=== PATIENT | male | born 1940 ===

== ENCOUNTER 2022-12-05 19:10 | Emergency (ER) | payer MEDICARE, SELFPAY ==
--- NOTE | ~2022-12-05 | XR_ITS ---
EXAMINATION: XR CHEST CLINICAL INFORMATION: Cough COMPARISON: None available. TECHNIQUE: Frontal view of the chest was obtained. FINDINGS: Lungs are hypoinflated. Heart size within normal limits. Atelectasis is present at the left lung base. Tiny left pleural effusion cannot be excluded. Increased opacity overlying the right hemithorax may be due to patient rotation. Consolidation with air bronchograms is not seen. No lung masses. Surgical clips are present in the right upper quadrant. XR/XR chest 1V IMPRESSION: Hypoinflated lungs with left basilar atelectasis and possible tiny left pleural effusion. An inspiratory PA and lateral chest radiograph would be useful when the patient is stable.
--- NOTE | ~2022-12-05 | XR_ITS ---
EXAMINATION: XR CHEST CLINICAL INFORMATION: Shortness of breath. COMPARISON: 12/05/2022 TECHNIQUE: 2 views of the chest were obtained. FINDINGS: The lung volumes are low which limits evaluation. The cardiomediastinal silhouette is stable. There is mild diffuse interstitial prominence. There is an apparent posterior opacity which obscures the posterior left diaphragm and partially obscures the lower thoracic vertebral. The bony structures and soft tissues are unremarkable. XR/XR chest 2V IMPRESSION: Low lung volumes limits evaluation. Mild diffuse interstitial prominence suspected to be technical and/or chronic. There appears to be a posterior opacity not well seen on the AP view which obscures the posterior left hemidiaphragm and lower thoracic vertebra. This is possibly atelectasis or infiltrate.
--- NOTE | ~2022-12-05 | US_ITS ---
EXAMINATION: US VENOUS ULTRASOUND WITH DOPPLER LOWER EXTREMITY, BILATERAL CLINICAL INFORMATION: Lower extremity edema. COMPARISON: None available. TECHNIQUE: Ultrasound of the deep veins is performed from the hip to the calf with compression sonography and color and pulse Doppler assessment. Spectral analysis with color-flow imaging is performed. FINDINGS: RIGHT: There is normal venous compression and respiratory variation and augmented flow. The visualized common femoral vein, superficial femoral vein, profunda femoral vein, popliteal vein, and the trifurcation region shows no evidence of deep venous thrombosis. There is no significant popliteal fossa cyst. LEFT: There is normal venous compression and respiratory variation and augmented flow. The visualized common femoral vein, superficial femoral vein, profunda femoral vein, popliteal vein, and the trifurcation region shows no evidence of deep venous thrombosis. There is no significant popliteal fossa cyst. If the patient's symptoms persist, followup ultrasound in 5 days 7 days might be of value to exclude proximal propagation from a non-visualized calf vein. US/US venous duplex LE BI IMPRESSION: No DVT demonstrated in the bilateral lower extremities.
[2022-12-05 19:23] VITALS: BP 102/61; BP 107/69; PULSE 78; PULSE 82; RESP 12; TEMP 36.8; O2SAT 92
--- NOTE | 2022-12-05 19:32 | ED_ITS ---
HPI - General Adult General Chief complaint: Weakness Stated complaint: weak, dizzy, inability to urinate Time Seen by Provider: 12/05/22 19:19 Source: family Mode of arrival: EMS Limitations: no limitations History of Present Illness HPI narrative: Patient has history of hypothyroidism status post tracheostomy was seen at [facility] on 11/29 for cough diagnosed as bronchitis started on doxycycline comes back from assisted living place for increased weakness patient is wheelchair-bound and feeling so getting cannot move from the wheelchair to the bed patient does have history of hypothyroidism on levothyroxine 137 mcg which she stopped about 3 months ago for unknown reason restarted by her physician yesterday 50 mcg but received 137 mcg on 11/29 in the ED Related Data Home Medications Medication Instructions Recorded Confirmed ezetimibe 10 mg tablet 10 mg PO DAILY 12/06/22 12/06/22 finasteride 5 mg tablet 5 mg PO DAILY 12/06/22 12/06/22 omeprazole 20 mg capsule,delayed 20 mg PO DAILY 12/06/22 12/06/22 release tamsulosin 0.4 mg capsule 0.8 mg PO DAILY 12/06/22 12/06/22 Previous Rx's Medication Instructions Recorded levothyroxine 137 mcg capsule 137 mcg PO DAILY #90 caps 12/06/22 Allergies Allergy/AdvReac Type Severity Reaction Status Date / Time No Known Allergies Allergy Verified 12/05/22 19:47 Review of Systems 2 Review of Systems: Yes all other systems are reviewed and are negative [facility] Social History Social History Advance Directives: No Advance Directives Information Provided: No Physical Exam ED Vital Signs: Vital Signs - 24 hr 12/05/22 19:23 12/05/22 21:53 12/05/22 23:44 Temperature 98.2 F 98.3 F 98.5 F Pulse Rate 82 55 75 Respiratory Rate 12 11 L 10 L Blood Pressure 102/61 157/134 H 144/71 H Pulse Oximetry 92 91 L 92 Oxygen Delivery Method Room Air Room Air Room Air BMI result Body Mass Index 30.0 Appearance: Alert. Oriented X3. No acute distress. Eyes: PERRLA, No Nystagmus ENT: Pharynx normal. Oral Mucosa moist Neck: Normal inspection. Neck supple. CVS: Normal heart rate and rhythm. Pulses normal. Respiratory: No respiratory distress. Equal air entry bilateral, no wheezing/rales/rhonchi Abdomen: Soft and nontender. Bowel sounds are present, no mass palpable, no CVA tenderness Skin: Skin warm and dry. Normal skin color. Normal skin turgor. Extremities: No lower extremity edema. No calf tenderness Neuro: Oriented X 3. Left-sided residual weakness Medications Administered Discontinued Medications Generic Name Dose Route Start Last Admin Trade Name Avelq PRN Reason Stop Dose Admin Levothyroxine Sodium 88 mcg 12/06/22 01:27 12/06/22 01:49 Levothyroxine Sodium 88 Mcg Tablet PO 12/06/22 01:28 88 mcg ONCE ONE Administration Medical Decision Making Medical Decision Making [facility] Narrative: Patient will increased weakness workup showed increased TSH level patient used to take 137 micro Gram levothyroxine which he did not take for 3 months was given 50 mcg by the PCP yesterday unable to be managed at assisted living place as feeling very weak will give extra dose of 88 mcg now plan for case management for placement in rehab until gets better Differential Diagnosis Differential Diagnoses: The differential diagnosis associated with the presentation includes Weakness/metabolic encephalopathy/UTI/infected Admission/Observation Consideration of admission/observation: Escalation of care including admission/observation considered Lab Data [facility] Lab Attestation statement: I reviewed the patient's lab results. 12/05/22 20:28 12/05/22 20:28 Labs: Lab Results 12/05/22 12/05/22 Range/Units 20:27 20:28 WBC 9.5 (4.8-10.8) X10*3/uL RBC 4.83 (4.60-5.80) X10*6/uL Hgb 13.0 L (14.0-18.0) g/dl Hct 40.1 L (42.0-52.0) % MCV 83.0 (80.0-98.0) fL MCH 26.9 L (27.0-33.0) pg MCHC 32.4 (31.0-36.0) g/dl RDW 17.3 H (11.0-16.0) % Plt Count 236 (160-400) X10*3/uL MPV 10.0 (9.4-12.4) fL Immature Gran % (Auto) 0.3 (0.0-0.4) % Neut % (Auto) 65.2 (45-73) % Lymph % (Auto) 19.2 L (20-40) % [place] % (Auto) 10.9 (2-11) % Eos % (Auto) 3.2 (0-4) % Baso % (Auto) 1.2 (0-2) % Lymph # (Auto) 1.8 (1.2-4.9) X10*3/uL [place] # (Auto) 1.0 (0.1-1.2) X10*3/uL Eos # (Auto) 0.3 (0.0-0.4) X10*3/uL Baso # (Auto) 0.1 (0.0-0.2) X10*3/uL Abs Immat Gran (auto) 0.03 (0.00-0.03) X10*3/uL Absolute Neuts (auto) 6.2 (2.0-8.3) x10*3/uL Absolute Nucleated RBC 0.000 (0.0-0.012) X10*3/uL Nucleated RBC % (auto) 0.0 (0.0-0.2) /100WBC Sodium 135 (135-145) mmol/L Potassium 4.8 (3.3-5.1) mmol/L Chloride 101 (96-108) mmol/L Carbon Dioxide 21 L (22-29) mmol/L Anion Gap 18 (12-20) BUN 21 H (9-16) mg/dL Creatinine 1.44 H (0.5-1.4) mg/dL Estim Creat Clear Calc 48.7 Estimated GFR 47 Random Glucose 101 (60-115) mg/dL Lactic Acid 1.0 (0.5-2.0) mmol/L Calcium 9.4 (8.4-10.2) mg/dL Total Bilirubin 0.6 (0.0-1.0) mg/dL AST 92 H (5-37) U/L ALT 43 H (0-40) U/L Alkaline Phosphatase 63 (39-117) U/L Total Protein 7.9 (6.5-8.0) g/dL Albumin 4.3 (3.5-5.0) g/dL TSH > 100.00 H (0.32-4.0) uIU/mL COVID-19 (ANTIONETTE) Negative (Negative) COVID-19 Clin Com See Note Independent Interpretation I performed an independent interpretation of an: EKG Interpretation: Poor baseline rhythm heart rate 68 beats per minute normal amplitude of the R- waves no acute ST-T changes no acute ischemia Discharge Plan Discharge Clinical Impression: Hypothyroidism, Weakness Patient Disposition: Still a Patient Instructions: Hypothyroidism (ED), Weakness (ED) Additional Instructions: Will increase the dose of levothyroxine to 137 mcg daily as you were taking before Continue rest of the medication Prescriptions: New levothyroxine 137 mcg capsule 137 mcg PO DAILY Qty: 90 0RF No Action tamsulosin 0.4 mg capsule 0.8 mg PO DAILY omeprazole 20 mg capsule,delayed release(DR/EC) 20 mg PO DAILY finasteride 5 mg tablet 5 mg PO DAILY ezetimibe 10 mg tablet 10 mg PO DAILY
[2022-12-05 20:33] LABS: MANUAL DIFF FLAG NO
[2022-12-05 20:35] LABS: Basophils Absolute Auto 0.1 X10*3/uL (0.0-0.2); Basophils Percent Auto 1.2 % (0-2); Eosinophils Absolute Auto 0.3 X10*3/uL (0.0-0.4); Eosinophils Percent Auto 3.2 % (0-4); Hematocrit 40.1 % (42.0-52.0); Imm Gran Abs Auto 0.03 X10*3/uL (0.00-0.03); Imm Gran Pct Auto 0.3 % (0.0-0.4); Lymphocytes Absolute Auto 1.8 X10*3/uL (1.2-4.9); Lymphocytes Percent Auto 19.2 % (20-40); Mean Corpuscular HGB Conc 32.4 g/dl (31.0-36.0); Mean Corpuscular Hemoglobin 26.9 pg (27.0-33.0); Monocytes Percent Auto 10.9 % (2-11); Neutrophils Absolute Auto 6.2 x10*3/uL (2.0-8.3); Neutrophils Percent Auto 65.2 % (45-73); Platelet Count 236 X10*3/uL (160-400); Red Blood Count 4.83 X10*6/uL (4.60-5.80); Red Cell Distribution Width 17.3 % (11.0-16.0); White Blood Count 9.5 X10*3/uL (4.8-10.8)
[2022-12-05 20:48] LABS: COVID-19 Test Negative (Negative); IDNOW Serial# 08D9AD1C
[2022-12-05 20:55] LABS: Alanine Aminotransferase 43 U/L (0-40); Albumin Level 4.3 g/dL (3.5-5.0); Alkaline Phosphatase 63 U/L (39-117); Anion Gap 18 (12-20); Aspartate Amino Transferase 92 U/L (5-37); Bilirubin Total 0.6 mg/dL (0.0-1.0); Blood Urea Nitrogen 21 mg/dL (9-16); Calcium 9.4 mg/dL (8.4-10.2); Carbon Dioxide 21 mmol/L (22-29); Chloride 101 mmol/L (96-108); Creatinine Clr Calc Pharmacy 48.7; Estimated Glomerular Filt Rate 47; Glucose Random 101 mg/dL (60-115); Potassium 4.8 mmol/L (3.3-5.1); Sodium 135 mmol/L (135-145); Total Protein 7.9 g/dL (6.5-8.0)
[2022-12-05 21:10] LABS: Thyroid Stimulating Hormone > 100.00 uIU/mL (0.32-4.0)
[2022-12-05 21:53] VITALS: BP 157/134; PULSE 55; RESP 11; TEMP 36.8; O2SAT 91
[2022-12-05 23:44] VITALS: BP 144/71; PULSE 75; RESP 10; TEMP 36.9; O2SAT 92
[2022-12-06] VITALS (8 sets, daily range): BP systolic 102–130; BP diastolic 55–93; PULSE 63–106; RESP 12–19; TEMP 36.7–36.9; O2SAT 91–94
--- NOTE | 2022-12-06 01:35 | ECG_ITS ---
Test Reason : HYPOTHYROID Blood Pressure : / mmHG Vent. Rate : 068 BPM Atrial Rate : 000 BPM P-R Int : 000 ms QRS Dur : 080 ms QT Int : 354 ms P-R-T Axes : 000 034 138 degrees QTc Int : 376 ms Poor data quality, interpretation may be adversely affected Normal sinus rhythm Nonspecific ST and T wave abnormality Abnormal ECG No previous ECGs available Referred By: Eladio Mcmullen Electronically Signed By:HI COMBS
[2022-12-06] MEDS: Levothyroxine Sodium 88 MCG TABLET PO ×2 (01:49→07:54)
--- NOTE | 2022-12-06 02:41 | PC.NURSE ---
Pt BIBA from [facility] living [facility]. Pt speaks with electrolarynx, tracheotomy without the canula noted. Pt reports increase weakness and dizziness x few days, with not taking levothyroxine x 4 months. Son at bedside reports Pt is able to pivot from W/C to bed at baseline but not being able to do so recently. BLL redness/swelling. Lung sounds wheezy on expiratory. [place] cath placed. Pt medicated PO per MAR with no difficulties.
[2022-12-06 06:42] LABS: Appearance Urine Clear; Color Urine Dark Yellow; Glucose Urine UA Negative (Negative); Leukocyte Esterase Urine Negative (Negative); Nitrite Urine Negative (Negative); PH 5.5 (5.0-9.0); Specific Gravity - Urine 1.025 (1.005-1.025); Urine Blood Negative (Negative); Urine Ketones Negative (Negative); Urine Protein Trace mg/dL (Neg-Trace)
--- NOTE | 2022-12-06 07:39 | PC.NURSE ---
patient found to be incontinent of urine, patient cleaned up, linens and pads changed, new [place] cath in place. patient sitting up eating breakfast, VSS.
[2022-12-06] MEDS: Tamsulosin HCL 0.4 MG CAPSULE 0.8 MG PO (08:21)
[2022-12-06] MEDS: Finasteride 5 MG TABLET PO (08:21)
[2022-12-06] MEDS: Ezetimibe 10 MG TABLET PO (08:21)
--- NOTE | 2022-12-06 12:25 | PC.NURSE ---
patient sleeping, respirations equal and unlabored. patient shows no signs of distress. Call thompson within reach, patient able to make needs known
--- NOTE | 2022-12-06 12:34 | PHA.MEDREC ---
Pharmacy Consult ? Medication Reconciliation Pharmacy has reviewed the medication reconciliation completed by nursing.
--- NOTE | 2022-12-06 13:48 | MHC.CM.ED ---
Received case management consult overnight. Patient came to the ER due to being dizzy and urination retention. Physical therapy eval completed. Short term rehab is recommended. Met with patient in regards to discharge planning. 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 Patient resides at [facility] and uses an electric wheelchair at baseline. Patient has received 6 Pfizer vaccines. Copy of HCP obtained from [facility]. PCP verified. Patient feels he can safely return home. Received notification from Jeanine SMALL that patient's son, Terrence, is concerned about patient safely returning to [facility]. Patient verifies he is worried about going to rehab because he is afraid he will have to be a custodial care resident there. Education regarding Short term rehab and custodial care provided. Patient verbalizes understanding. Spoke with patient's son, Terrence via telephone at [phone]. Don verifies patient lives at [facility]. Don verifies patient was not inpatient in any hospital in the past 30 days. Terrence also verifies patient was only in the ER at [facility]. Don requesting if patient could be admitted to hospital for 3 days. Medicare 3 midnight qualifying stay rule explained to Terrence. Also explained Medicare regulations in regards to inpatient level of care. Don concerned about bilateral leg swelling. Also worried about patient's work of breathing. T/W discussed clinical findings at this time. Don's concerns were explained to Brittany LOERA. Additional testing will be ordered. T/W will contact [facility] to obtain a copy of ER visit. Continue to monitor for d/c needs.
[2022-12-06] MEDS: cephALEXin 500 MG CAPSULE PO ×2 (15:18→20:51)
[2022-12-06 15:42] LABS: B Type Natriuretic Peptide 24 pg/mL (<100)
--- NOTE | 2022-12-06 18:04 | PC.NURSE ---
patient resting in bed, tex[place] cath in place, approx 300 ml of urine drained. states he is comfortable
--- NOTE | 2022-12-06 19:17 | PC.NURSE ---
ASSISTED PT WITH [facility] URINE OUTPUT 500ML FOR 730 AM -7P
[2022-12-06] MEDS: Acetaminophen 325 MG TABLET 650 MG PO (23:20)
--- NOTE | 2022-12-07 00:20 | PC.NURSE ---
Pt reports bilateral leg spasm, PO medication given per MAR, Pt appeared to be sleeping on reassessment, equal and non labored breathing.
[2022-12-07] MEDS: cephALEXin 500 MG CAPSULE PO ×4 (03:00→20:08)
[2022-12-07] MEDS: LORazepam 1 MG TABLET PO (03:07)
[2022-12-07 05:58] VITALS: BP 142/77; PULSE 63; RESP 17; TEMP 36.6; O2SAT 93
[2022-12-07] MEDS: Omeprazole 20 MG CAPSULE.DR PO (06:25)
--- NOTE | 2022-12-07 06:25 | PC.NURSE ---
Pt appears to be sleeping at this time, equal and non labored respirations, awakens with verbal stimuli, reports effectiveness to med given.
[2022-12-07 08:52] LABS: MANUAL DIFF FLAG NO
[2022-12-07 08:54] LABS: Basophils Absolute Auto 0.1 X10*3/uL (0.0-0.2); Basophils Percent Auto 0.9 % (0-2); Eosinophils Absolute Auto 0.3 X10*3/uL (0.0-0.4); Eosinophils Percent Auto 4.5 % (0-4); Hematocrit 39.1 % (42.0-52.0); Hemoglobin 12.6 g/dl (14.0-18.0); Imm Gran Abs Auto 0.02 X10*3/uL (0.00-0.03); Imm Gran Pct Auto 0.3 % (0.0-0.4); Lymphocytes Absolute Auto 1.7 X10*3/uL (1.2-4.9); Mean Corpuscular HGB Conc 32.2 g/dl (31.0-36.0); Mean Corpuscular Hemoglobin 26.8 pg (27.0-33.0); Mean Corpuscular Volume 83.2 fL (80.0-98.0); Mean Platelet Volume 9.2 fL (9.4-12.4); Monocytes Absolute Auto 0.9 X10*3/uL (0.1-1.2); Monocytes Percent Auto 11.7 % (2-11); Neutrophils Absolute Auto 4.5 x10*3/uL (2.0-8.3); Neutrophils Percent Auto 59.6 % (45-73); Platelet Count 276 X10*3/uL (160-400); Red Cell Distribution Width 17.2 % (11.0-16.0); White Blood Count 7.6 X10*3/uL (4.8-10.8)
[2022-12-07 09:37] LABS: Anion Gap 12 (12-20); Blood Urea Nitrogen 17 mg/dL (9-16); Calcium 8.8 mg/dL (8.4-10.2); Carbon Dioxide 26 mmol/L (22-29); Chloride 100 mmol/L (96-108); Creatinine Clr Calc Pharmacy 51.6; Estimated Glomerular Filt Rate 50; Glucose Random 81 mg/dL (60-115); Potassium 4.1 mmol/L (3.3-5.1); Sodium 134 mmol/L (135-145)
[2022-12-07 09:49] LABS: TSH reflex Free T4 > 100.00 uIU/mL (0.32-4.0)
[2022-12-07] MEDS: Tamsulosin HCL 0.4 MG CAPSULE 0.8 MG PO (09:52)
[2022-12-07] MEDS: Finasteride 5 MG TABLET PO (09:52)
[2022-12-07] MEDS: Ezetimibe 10 MG TABLET PO (09:52)
--- NOTE | 2022-12-07 09:59 | PC.NURSE ---
patient a&ox3, pt speaks with voice box/stoma, pt medicated per order- pt asked if he wanted breakfast and he refused at this time, [place] cath intact/draining yellow urine, pt states he has bilateral leg spasms and states the medication he was given last night worked/helped and decreased his pain, pt was given 1mg ativan last night- will speak with the provider about maybe PRN ativan or some other medication to help as he requests. vitals continue to be stable, call thompson within reach, will continue to monitor
[2022-12-07 11:49] VITALS: BP 115/72; RESP 18; TEMP 36.2
[2022-12-07 11:54] LABS: Free T4 (Free Thyroxine) 0.52 ng/dL (0.71-1.85)
[2022-12-07] MEDS: Levothyroxine Sodium 88 MCG TABLET PO (11:59)
[2022-12-07 14:52] VITALS: BP 117/57; PULSE 72; RESP 18; TEMP 36.3; O2SAT 91
--- NOTE | 2022-12-07 16:08 | PC.NURSE ---
abx given per may. request to PA for stool softened and muscle relaxer for pt bilat muscle spasms in legs. Last night ativan was given.
[2022-12-07 19:46] VITALS: BP 129/64; PULSE 73; RESP 22; TEMP 36.6; O2SAT 94
[2022-12-07] MEDS: Docusate Sodium 100 MG CAPSULE PO (19:56)
[2022-12-08] MEDS: cephALEXin 500 MG CAPSULE PO ×2 (03:23→08:10)
[2022-12-08 05:21] VITALS: BP 91/55; PULSE 65; RESP 18; TEMP 36.3; O2SAT 90
[2022-12-08] MEDS: Levothyroxine Sodium 88 MCG TABLET PO (06:00)
[2022-12-08] MEDS: Omeprazole 20 MG CAPSULE.DR PO (06:00)
[2022-12-08] MEDS: Finasteride 5 MG TABLET PO (08:10)
[2022-12-08] MEDS: Docusate Sodium 100 MG CAPSULE PO (08:10)
[2022-12-08] MEDS: Tamsulosin HCL 0.4 MG CAPSULE 0.8 MG PO (08:10)
[2022-12-08] MEDS: Ezetimibe 10 MG TABLET PO (08:10)
--- NOTE | 2022-12-08 09:06 | MHC.CM.ED ---
Patient remains in ER overflow. Not inpatient appropriate for admission. Patient found to have BLE cellulitis. Started on oral antibiotics. Patient does not have the funds to privately pay for STR. Patient is not interested in rehab and wants to return to his assisted living facility at [facility]. Spoke with patient's son/HCP, Terrence. Don is agreeable to patient returning to [facility] with VNA. Attempted to arrange [facility] for SN, PT and OT. However there was no response in [facility]. [facility] is able to accept patient. Patient and Don agreeable to [facility]. Patient will leave ER at 2pm. Sowmya WADSWORTH booked. Med nec with chart. Don will let [facility] know. Patient, Terrence, Court RN and Yancy LOERA aware. Continue to monitor for d/c needs.
[2022-12-08 20:44] LABS: Triiodothyronine T3 Total 48 ng/dL (76-181)
== END 2022-12-08 17:11 | disposition home or self-care (01) ==
PROVIDERS: Physician Assistant; Emergency Provider Internal Medicine; PCP Internal Medicine
DX: E03.9 Hypothyroidism, unspecified (principal); R53.1 Weakness; R60.0 Localized edema; Z93.0 Tracheostomy status; Z20.822 Contact with and (suspected) exposure to COVID-19; Z79.899 Other long term (current) drug therapy
CPT/HCPCS: 36415; 71045; 71046; 80048; 80053; 81003; 83605; 83880; 84439; 84443; 84480; 85025; 87040; 87635; 93005; 93970; 97162; 97530; 99285